=== PATIENT | female | born 1990 | race American Indian/Alaskan Native ===

== ENCOUNTER 2020-07-09 19:52 | Emergency (ER) | payer SELFPAY ==
[2020-07-09 20:39] VITALS: BP 118/73
[2020-07-09] MEDS ORDERED: SODIUM CHLORIDE 0.9% 1000 ML 1,000 ML IV ONE (20:45)
[2020-07-09] MEDS ORDERED: ACETAMINOPHEN 500 MG TAB PO ONE (20:48)
--- NOTE | 2020-07-09 20:52 | Emergency Department Report ---
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 Patient has not received any care during this . She estimates she is approximately 12 weeks . First day of LMP was 04/10/2020. Patient has visualized multiple blood clots today. Denies fever, chills, nausea, vomiting, syncope. Denies all other complaints at this time. - Related Data Previous Rx's Medication Instructions Recorded Last Taken Type Ondansetron [Zofran Odt] 4 mg PO Q8HR #30 tab.rapdis 07/09/20 Unknown Rx oxyCODONE /ACETAMINOPHEN [Percocet 1 tab PO Q6HR PRN #15 tablet 07/09/20 Unknown Rx 5/325] Allergies Allergy/AdvReac Type Severity Reaction Status Date / Time No Known Allergies Allergy Unverified 07/09/20 20:39 ED Review of Systems ROS: Stated complaint: ABDOMINAL PAIN/VAG BLEEDING Other details as noted in HPI Other: GENERAL: Negative for fever, chills, weight change, anorexia, fatigue. ENT: Negative for ear pain, difficulty hearing, sore throat, nasal congestion, epistaxis. CARDIOVASCULAR: Negative for chest pain, palpitations, lower extremity swelling. PULMONARY: Negative for cough, dyspnea, wheezing, orthopnea, cyanosis. GASTROINTESTINAL: Positive for abdominal pain GENITOURINARY: Positive for vaginal bleeding MUSCULOSKELETAL: Negative for joint pain, joint swelling, myalgias, back pain, neck pain. NEUROLOGICAL: Negative for headache, seizure, syncope, paresthesias, weakness. INTEGUMENTARY: Negative for erythema, rash, diaphoresis, laceration, ecchymosis. HEMATOLOGICAL: Negative for hemoptysis, hematemesis, hematochezia, hematuria. PSYCHIATRIC: Negative for hallucinations, suicidal ideation, homicidal ideation, anxiety, depression. ED Past Medical Hx - Past Medical History Previous Medical History?: No - Surgical History Past Surgical History?: Yes Additional Surgical History: X 3 - Social History Smoking Status: Never Smoker Substance Use Type: None - Medications Home Medications: Home Medications Medication Instructions Recorded Confirmed Last Taken Type Ondansetron [Zofran Odt] 4 mg PO Q8HR #30 tab.rapdis 07/09/20 Unknown Rx oxyCODONE /ACETAMINOPHEN [Percocet 1 tab PO Q6HR PRN #15 tablet 07/09/20 Unknown Rx 5/325] ED Physical Exam - General Limitations: No Limitations - Other Other exam information: General: Awake and alert. Tearful, restless, uncomfortable. Head: Atraumatic, normocephalic. Eyes: EOMI. Pupils are equal and round. Normal sclera and conjunctiva. ENT: Oral mucosa is moist. Normal pharyngeal exam. Neck: Supple. No lymphadenopathy. Pulmonary: No respiratory distress. Clear to auscultation bilaterally. Cardiac: Regular rate and rhythm. Pulses are palpable and equal bilaterally. No lower extremity cyanosis or edema. Skin: Warm and dry. No rashes. Abdomen: Soft, non-protuberant. Diffuse lower abdominal tenderness without guarding, rigidity, or rebound. Bowel sounds are normal. No organomegaly or mas ses noted. Pelvic: Female housekeeper/laundry assistant (DANNIELLE Chaney) present. There is a moderate amount of blood in the vaginal vault. Multiple blood clots removed. Cervical os is closed. Back: Normal alignment. No CVA tenderness. Extremities: Symmetrical. Full range of motion intact. Neurological: Alert and oriented, appropriately interactive, no focal deficits. Psych: Cooperative. Appropriate mood and affect. Speech is evenly metered. Thoughts are logically construed. ED Course Vital Signs 07/09/20 07/09/20 07/09/20 20:33 21:26 22:19 Temperature 97.7 F Pulse Rate 75 Respiratory 18 18 18 Rate Blood Pressure 118/73 O2 Sat by Pulse 99 Oximetry 07/09/20 22:20 Temperature Pulse Rate Respiratory 18 Rate Blood Pressure O2 Sat by Pulse Oximetry ED Medical Decision Making - Lab Data Result diagrams: 07/09/20 21:06 07/09/20 21:06 - Radiology Data [facility] [address] [place] [address] Ultrasound Report Signed Patient: JOSE E TRUONG MR #: [id number] : 1990 Acct:[id number] Age/Sex: 30 / F ADM Date: 07/09/20 Loc: ED Attending Dr: Ordering Physician: OMI JACOBS Date of Service: 07/09/20 Procedure(s): US OB <= 14 weeks fetus Accession Number(s): [id number] cc: OMI JACOBS ULTRASOUND OBSTETRIC INDICATION / CLINICAL INFORMATION: abdominal pain/vaginal bleeding; 12 wks preg. Clinical Gestational Age (GA): Reported at 12 weeks TECHNIQUE: Transabdominal. COMPARISON: None available. FINDINGS: GESTATIONAL SAC: Well-defined oval shape and intrauterine in location. Measures 3.5 cm corresponding to estimated gestation of 8 weeks and 5 days. YOLK SAC: Not visualized. EMBRYO/FETUS: Not visualized. - Heart Rate, beats per minute (if present) = not present. ADNEXA: No significant abnormality. FREE FLUID: None. ADDITIONAL FINDINGS: None. IMPRESSION: 1. Findings suspicious for failed early . Consider continued follow-up with serial beta hCG and short-term further evaluation with ultrasound in 7-14 days, as warranted. Signer Name: Yimi Katz MD Signed: 07/09/2020 9:45 PM Workstation Name: [id number] Transcribed By: Dictated By: YIMI KATZ III Electronically Authenticated By: YIMI KATZ III Signed Date/Time: 07/09/202144 DD/ 40 TD/TT: - Medical Decision Making Differential diagnosis including but not limited to: ectopic , septic , spontaneous , uterine rupture, premature rupture of membranes, hemorrhagic shock Patient presents to the emergency department with complaints of lower abdominal pain and vaginal bleeding. She estimates she is approximately 12 weeks by dates. She has not undergone an ultrasound at any point during this . Patient has had multiple spontaneous abortions with prior pregnancies as a result of cervical incompetence. Patient was brought back to the acute care area immediately following medical screening exam. Cervix is closed however patient has significant abdominal pain with vaginal bleeding present. Analgesia discussed with Dr. Pitts, attending emergency physician, who recommended Tylenol and IV fluids until sonographic confirmation of demise is obtained. Ultrasound shows well-defined intrauterine gestational sac measuring 3.5 cm, corresponding to an estimated gestational age of 8 weeks and 5 days. Yolk sac and embryo/fetus not visualized. heart rate absent. No free fluid. Findings suspicious for failed early . Beta hCG is ~6500. Hemoglobin is stable. Rh (+). Pain is controlled after IV Dilaudid, administered after confirmed demise. History and exam findings consistent with spontaneous . Case discussed with Dr. Lopez, [facility], who recommended expectant management given the early gestational age. She has agreed to follow-up with patient on an outpatient basi s. Patient's heart rate and blood pressure have remained stable. There is no clinical indication for blood transfusion and/or emergent D&C at this time. Patient will be discharged home with appropriate analgesics and referred to [facility] for close outpatient follow-up. Patient was advised that the bleeding will persist until the is complete. Patient expressed understanding and is agreeable to plan of care. Strict return precautions provided. Repeat exam is unremarkable and benign. Pain is controlled, she is resting comfortably. History, exam, diagnostic testing, and current condition do not suggest worrisome pathology to warrant further testing, continued ED treatment, admission, or surgical evaluation at this point. Given the low probability of a significant medical illness, it would be more likely to result in harm than benefit to perform further testing at this stage. Discussed findings, presumptive diagnosis, need for follow-up and specific signs/symptoms that should prompt immediate return to the emergency department. Instructions were explained in detail to the patient in addition to giving written discharge information. Patient expressed understanding and was given the opportunity to ask questions, all of which were satisfactorily answered prior to discharge home. Case discussed with Dr. Pitts, attending emergency physician, who agrees with diagnostic work-up/plan of care. Critical care attestation.: If time is entered above; I have spent that time in minutes in the direct care of this critically ill patient, excluding procedure time. ED Disposition Clinical Impression: Spontaneous Disposition: DC-01 TO HOME OR SELFCARE Is pt being admited?: No Does the pt Need Aspirin: No Condition: Stable Instructions: Miscarriage, [id number] Additional Instructions: Take Percocet with food as directed for pain. Do not consume alcohol taking this medication. Do not drive or operate heavy machinery while taking this medication. Take Zofran for nausea/vomiting as directed. Rest. Drink plenty of fluids. Follow-up with Dr. Lopez, obstetrics, this week. Call tomorrow to schedule an appointment. Return to the emergency department immediately for new or worsening symptoms. Specifically, return to the emergency department immediately for fever, worsening abdominal pain, loss of consciousness, dizziness, chest pain, albina rtness of breath, palpitations, skin color changes, or any other concerns. Prescriptions: oxyCODONE /ACETAMINOPHEN [Percocet 5/325] 1 tab PO Q6HR PRN #15 tablet PRN Reason: Pain Ondansetron [Zofran Odt] 4 mg PO Q8HR #30 tab.rapdis Referrals: RIVERA LOPEZ MD [Staff Physician] - 3-5 Days Forms: Work/School Release Form(ED) Time of Disposition: 00:02
[2020-07-09 21:18] LABS: Hematocrit 31.4 % (30.3-42.9); Hemoglobin 10.5 gm/dl (10.1-14.3); Mean Corpuscular HGB Conc 33 % (30-34); Mean Corpuscular Volume 81 fl (79-97); Platelet Count 284 K/mm3 (140-440); Red Blood Count 3.86 M/mm3 (3.65-5.03)
[2020-07-09 21:28] LABS: INR 1.04 (0.87-1.13)
[2020-07-09 21:29] LABS: Partial Thromboplastin Time 24.1 Sec. (24.2-36.6)
[2020-07-09 21:40] LABS: Alanine Aminotransferase 9 units/L (7-56); Albumin 4.2 g/dL (3.9-5); Blood Urea Nitrogen 6 mg/dL (7-17); Calcium 8.9 mg/dL (8.4-10.2); Hemolysis Index 2
[2020-07-09 21:42] LABS: BUN/Creatinine Ratio 12
[2020-07-09 21:47] LABS: Promyelocytes # (Manual) 45.8 K/mm3; Total Cells Counted 100
[2020-07-09 21:50] LABS: Anisocytosis Few; Ovalocytes Few; Platelet Estimate Consistent w Auto
--- NOTE | 2020-07-09 21:50 | Ultrasound Report ---
ULTRASOUND OBSTETRIC INDICATION / CLINICAL INFORMATION: abdominal pain/vaginal bleeding; 12 wks preg. Clinical Gestational Age (GA): Reported at 12 weeks TECHNIQUE: Transabdominal. COMPARISON: None available. FINDINGS: GESTATIONAL SAC: Well-defined oval shape and intrauterine in location. Measures 3.5 cm corresponding to estimated gestation of 8 weeks and 5 days. YOLK SAC: Not visualized. EMBRYO/FETUS: Not visualized. - Heart Rate, beats per minute (if present) = not present. ADNEXA: No significant abnormality. FREE FLUID: None. ADDITIONAL FINDINGS: None. IMPRESSION: 1. Findings suspicious for failed early . Consider continued follow-up with serial beta hCG and short-term further evaluation with ultrasound in 7-14 days, as warranted. Signer Name: Lobo Katz MD Signed: 07/09/2020 9:45 PM Workstation Name: [id number]
[2020-07-09] MEDS ORDERED: HYDROmorphone 1 MG/1 ML INJ IV ONE (21:53)
[2020-07-09] MEDS ORDERED: ONDANSETRON 4 MG/2 ML INJ IV ONE (21:53)
== END 2020-07-10 00:45 | disposition home or self-care (01) ==
LOC: ED 19:52
DX: O03.9 Complete or unspecified spontaneous abortion without complication (principal); Z98.890 Other specified postprocedural states; Z79.899 Other long term (current) drug therapy; Z3A.01 Less than 8 weeks gestation of pregnancy
CPT/HCPCS: 36415; 76801; 80053; 83735; 84702; 85007; 85025; 85610; 85730; 86900; 86901; 96361; 96374; 96375; 99284; J1170; J2405; J7030